=== PATIENT | female | born 1960 | race Caucasian/White ===

== ENCOUNTER → 2016-03-18 | Day surgery (SDC) | payer OTHER ==
[~2016-03-18] MED LIST: LIDOCAINE 2% 5 ML SDV ONE; LR 1,000 ML IV ONE; MIDAZOLAM 2 MG/2 ML VIAL ONE; PROPOFOL 200 MG/20 ML VIAL ONE
--- NOTE | 2016-03-18 12:10 | GPN ---
[f rep st] PROCEDURE NOTE PROCEDURE: Colonoscopy and biopsy. INDICATION: Personal history of polyps. Multiple polyps removed each time we do a colonoscopy. Las t colonoscopy February 2015 with removal of 1 and 2 cm in size. PREOPERATIVE DIAGNOSIS: History of polyps, rule out recurrent polyps. POSTOPERATIVE DIAGNOSIS: Two small polyps measuring about 3 mm in size, 1 in the distal transverse c olon, 1 in the proximal descending colon, both removed in total by cold biopsy. No other evidence of polyposis noted. INFORMED CONSENT: I had a detailed discussion with the patient regarding the procedure, alternatives , benefits, and risks including bleeding, perforation, infection, risk of medication. Informed conse nt was signed and witnessed. COMPLICATIONS: None immediate. MEDICATIONS: MAC as per Anesthesia. DESCRIPTION OF PROCEDURE: After adequate sedation, the patient was in the left lateral decubitus pos ition. A visual and digital anorectal examination was performed. The video colonoscope was inserted via the rectum, advanced under direct visualization to the terminal ilium. I identified the cecum b y the confluence of taenia, appendiceal orifice, and ileocecal valve. Upon withdrawal of the instrum ent, careful attention was paid to the mucosal detail. The prep was very good. The terminal ileum w as normal. Retroflex examination was performed in the cecum, and the ascending colon was evaluated b oth with retroflex exam and forward viewing. There were no polyps noted in the ascending colon. Pre vious Connie ink site was noted with no residual tissue. There were 2 small polyps noted on withdrawa l of the instrument. There was a 3 mm polyp in the distal descending colon, and a 3 mm polyp in the proximal descending colon. Both were removed in cold biopsy with multiple biopsies. Retroflex exami nation of the rectum was performed. The endoscope was completely withdrawn, confirming the above fin dings. The patient tolerated the procedure well, and was transferred to the recovery area in satisfa ctory condition. IMPRESSION: 1. Two small polyps, 1 in the distal transverse colon, 1 in the proximal descending colon, status po st cold biopsy removal in piecemeal fashion. 2. Otherwise normal colonoscopy. RECOMMENDATIONS: 1. Follow up pathology. 2. I will discuss her case with our septic tank service technician, Dr. Perdue. Previously, he did not think that any ge netic syndrome was likely, and if that is still the case, then I will repeat the colonoscopy in 3 yea rs. If he is concerned about any genetic syndrome, then we may repeat the colonoscopy in 2 years. 3. High-fiber, high fluid diet. 4. Except for use as cardiac or stroke prevention, try to avoid aspirin and nonsteroidal anti-inflam matory drugs for the next week. 5. Follow up with primary care physician as scheduled. Thank you for allowing me to participate in this patient's healthcare. Do not hesitate to call me if you have any questions. /[id number]/MODL
== END | disposition home or self-care (01) ==
LOC: FSGY 08:44
PROVIDERS: ATTEND Internal Medicine Gastroenterology
PROC: 0DBL8ZZ Excision of Transverse Colon, Via Natural or Artificial Opening Endoscopic (ICD-10-PCS; principal; 2016-03-18 10:00)
PROC: 0DBM8ZZ Excision of Descending Colon, Via Natural or Artificial Opening Endoscopic (ICD-10-PCS; principal; 2016-03-18 10:00)
DX: D12.4 Benign neoplasm of descending colon (principal); D12.3 Benign neoplasm of transverse colon
CPT/HCPCS: J2250; J2704

== ENCOUNTER → 2018-08-14 | Outpatient (CLI) | payer OTHER | LOC: FIMAGING 07:52 ==